=== PATIENT | female | born 1975 ===

== ENCOUNTER 2017-11-22 01:26 | Outpatient (CLI) | payer BC | END 2017-11-22 23:59 | disposition home or self-care (01) | LOC: DIABETIC 01:26 | PROVIDERS: ATTEND Surgery | DX: E11.8 Type 2 diabetes mellitus with unspecified complications (principal) | CPT/HCPCS: 97802 ==

== ENCOUNTER 2017-12-19 02:03 | Outpatient (CLI) | payer BC | END 2017-12-19 23:59 | disposition home or self-care (01) | LOC: DIABETIC 02:03 | PROVIDERS: ATTEND Surgery | DX: E66.01 Morbid (severe) obesity due to excess calories (principal) | CPT/HCPCS: 97802 ==

== ENCOUNTER 2018-01-21 04:14 | Outpatient (CLI) | payer BC | END 2018-01-21 23:59 | disposition home or self-care (01) | LOC: DIABETIC 04:14 | PROVIDERS: ATTEND Surgery | DX: Z71.3 Dietary counseling and surveillance (principal); E66.01 Morbid (severe) obesity due to excess calories; Z68.42 Body mass index [BMI] 45.0-49.9, adult | CPT/HCPCS: 97802 ==